=== PATIENT | female | born 1970 | race Caucasian/White ===

== ENCOUNTER 2024-10-05 20:02 | Inpatient (IN) | payer OTHER, SELFPAY ==
[2024-10-05] VITALS (10 sets, daily range): BP systolic 144–165; BP diastolic 72–86; PULSE 75–86; RESP 18; TEMP 36.8; O2SAT 95–99; BMI 31.6
[2024-10-05 20:22] LABS: Appearance Urine Clear (Clear); Bilirubin Urine Negative (Negative); Blood Urine Trace-lysed (Negative); Color Urine Yellow (Yellow); Glucose Urine Negative (Negative); Ketones Urine Negative (Negative); Leukocyte Esterase Urine 1+ (Negative); Nitrite Urine Negative (Negative); Protein Urine Trace (Negative); Specific Gravity Urine 1.025 (1.000-1.030)
--- NOTE | 2024-10-05 20:39 | ED_ITS ---
HPI - General Adult General Date Seen: 10/05/24 Chief complaint: Abdominal Pain Stated complaint: bad abdominal pain Time Seen by Provider: 10/05/24 20:15 History of Present Illness HPI narrative: Very pleasant 54-year-old female presents to the ER today for right upper quadrant abdominal pain. She is visiting [place] but normally lives in [place], [place]. Therefore we do not have any previous medical records for her. She says she is generally healthy. She has no previous abdominal surgeries. No regular prescription medications. She started having episodes of right upper quadrant abdominal pain about 5 days ago on Tuesday. Prior to this week she had never had any similar pain. She notes that she had had episodes that last a few hours, typically triggered by eating but always getting better on their own. She has has been taking some [id number] medications. She came to visit [place] this weekend because of a horse show. She had some lunch with her friends at a [employer] restaurant and did have 1 Olivia with lunch. After l she had recurrence of pain and it has now been persistent for many hours and is not getting better. She rates it at a 9/10. She is nauseous. No vomiting. Bowel movements have been normal. Urination has been normal. No fever. Related Data Home Medications ?Medication ?Instructions ?Recorded ?Confirmed gabapentin 100 mg capsule 100 mg PO QHS 10/05/24 10/05/24 paroxetine HCl 10 mg tablet (Paxil) 5 mg PO HS 10/05/24 10/05/24 Allergies Allergy/AdvReac Type Severity Reaction Status Date / Time No Known Drug Allergies Allergy Verified 10/05/24 20:17 [facility] Medical History Depression ?F32.A - Depression, unspecified (ICD-10) Surgical History H/O tubal ligation ?Z98.51 - Tubal ligation status (ICD-10) Social History Smoking Status: Never smoker Do you use any of these nicotine containing products: None Second hand tobacco smoke exposure: No How often do you have a drink containing alcohol: monthly or less AUDIT-C Alcohol total score: 1 Non-prescribed substance use: denies use Exam Narrative: Exam Narrative: Constitutional: Appears well-developed and well-nourished. Alert. Conversant but uncomfortable. Non toxic. HENT: Head: Atraumatic. Nose: Nose normal. Mouth/Throat: Oral mucosa is clear and moist. no trismus. Pharynx normal. Eyes: Conjunctivae normal. EOM normal. Pupils equal, round, and reactive to light. No scleral icterus. Neck: Normal range of motion. Neck supple. No tracheal deviation present. Cardiovascular: Normal rate, regular rhythm. No gallop. No friction rub. No murmur heard. Pulmonary/Chest: Effort normal. No stridor. No respiratory distress. No wheezes. No rales. No rhonchi . No tenderness. Abdominal: Soft. Bowel sounds normal. No distension. No mass. Marked right upper quadrant tenderness. Positive Drew sign. No left upper quadrant tenderness. No lower abdominal tenderness. No CVA tenderness. No rebound. No guarding. Musculoskeletal: RUE: Normal range of motion. No tenderness. No deformity LUE: Normal range of motion. No tenderness. No deformity RLE: Normal range of motion. No edema. No tenderness. No deformity LLE: Normal range of motion. No edema. No tenderness. No deformit Neurological: Alert and oriented to person, place, and time. Normal strength. CN II-VII intact. No sensory deficit. GCS eye subscore is 4. GCS verbal subscore is 5. GCS motor subscore is 6. Normal coordination Skin: Skin is warm and dry. No rash noted. No pallor. Normal capillary refill. Psychiatric: Normal mood. Normal affect. Const: Vital Signs, click to edit/add: Vital Signs - 24 hr 10/05/24 20:15 10/05/24 20:36 10/05/24 20:50 Temperature 98.2 F 98.2 F Pulse Rate Pulse Rate [Right Pulse Oximeter] 86 Respiratory Rate 18 Blood Pressure Blood Pressure [Ri ght Upper Arm] 165/82 H Pulse Oximetry 99 98 Oxygen Delivery Me thod Room Air 10/05/24 21:03 10/05/24 21:55 10/05/24 21:58 Temperature 98.2 F Pulse Rate 81 78 Pulse Rate [Right Pulse Oximeter] Respiratory Rate 18 18 Blood Pressure 144/80 H 150/72 H Blood Pressure [Ri ght Upper Arm] Pulse Oximetry 95 96 Oxygen Delivery Me thod 10/05/24 22:01 10/05/24 23:02 10/05/24 23:24 Temperature 98.2 F Pulse Rate 77 75 Pulse Rate [Right Pulse Oximeter] 79 Respiratory Rate 18 18 18 Blood Pressure 144/72 H 149/86 H Blood Pressure [Ri ght Upper Arm] 145/84 H Pulse Oximetry 95 97 97 Oxygen Delivery Me thod Room Air 10/05/24 23:25 Temperature 98.2 F Pulse Rate Pulse Rate [Right Pulse Oximeter] 79 Respiratory Rate 18 Blood Pressure Blood Pressure [Ri ght Upper Arm] 145/84 H Pulse Oximetry Oxygen Delivery Me thod Course Vital Signs Vital signs: Initial Vital Signs Temperature 98.2 F 10/05/24 20:15 Temperature Source Temporal Artery Scan 10/05/24 20:15 Pulse Rate 86 10/05/24 20:15 Respiratory Rate 18 10/05/24 20:15 Blood Pressure 165/82 H 10/05/24 20:15 Blood Pressure Mean 109 H 10/05/24 20:15 Blood Pressure Position Sitting 10/05/24 20:15 Pulse Oximetry 99 10/05/24 20:15 Oxygen Delivery Method Room Air 10/05/24 20:15 Vital Signs Temperature 98.2 F 10/05/24 20:15 Pulse Rate 86 10/05/24 20:15 Respiratory Rate 18 10/05/24 20:15 Blood Pressure 165/82 H 10/05/24 20:15 Pulse Oximetry 99 10/05/24 20:15 Oxygen Delivery Method Room Air 10/05/24 20:15 Temperature 98.2 F 10/05/24 23:25 Pulse Rate 79 10/05/24 23:25 Respiratory Rate 18 10/05/24 23:25 Blood Pressure 145/84 H 10/05/24 23:25 Pulse Oximetry 97 10/05/24 23:24 Oxygen Delivery Method Room Air 10/05/24 23:24 Medications Administered Medications: Generic Name Dose Route Start Last Admin Trade Name Freq PRN Reason Stop Dose Admin Hydromorphone HCl 0.5 mg 10/05/24 23:35 10/05/24 23:55 Hydromorphone 0.5 Mg/0.5 Ml Inj IVP 0.5 mg Q2H PRN Administration Sodium Chloride 1,000 mls @ 125 mls/hr 10/05/24 23:35 10/05/24 23:55 0.9 % Sodium Chloride 1000 Ml IV 125 mls/hr .Q8H KIP Administration Discontinued Medications Generic Name Dose Route Start Last Admin Trade Name Freq PRN Reason Stop Dose Admin Hydromorphone HCl 0.5 mg 10/05/24 20:46 10/05/24 20:50 Hydromorphone 0.5 Mg/0.5 Ml Inj IVP 0.5 mg Q1H PRN Administration Pain Sodium Chloride 1,000 mls @ 1,000 mls/hr 10/05/24 21:00 10/05/24 21:58 0.9 % Sodium Chloride 1000 Ml IV 10/05/24 21:59 Infused .Q1H KIP Infusion Ketorolac Tromethamine 15 mg 10/05/24 20:46 10/05/24 20:50 Ketorolac 15 Mg/Ml Inj IVP 10/05/24 20:47 15 mg ONCE ONE Administration Ondansetron HCl 4 mg 10/05/24 20:46 10/05/24 20:50 Ondansetron 2 Mg/Ml Inj IVP 10/05/24 20:47 4 mg ONCE ONE Administration Medical Decision Making MDM Narrative Medical decision making narrative: Presented to the Emergency Department with right upper quadrant abdominal pain that is been present intermittently all week long but has been persistent since lunch today.. The differential diagnosis of abdominal pain includes: Cholecystitis, choledocholithiasis, gallstone pancreatitis, less likely would be Appendicitis, Bowel Obstruction, Ulcer, Ischemia, Diverticulitis, Pancreatitis, UTI, kidney stone, Enteritis/Colitis, amongst many other etiologies. Lab testing reveals a normal white count. Mild anemia with a hemoglobin 11. This was previously known to the patient and that is not an acute finding tonight. LFTs are normal say for AST of 39 ( ALT 18, total bili 0.4, alk-phos 87). Baseline LFTs are unknown. Lipase is normal at 89. Urinalysis is negative. Gallbladder ultrasound confirms gallstones but no evidence for stones in the gallbladder neck or common bile duct. No gallbladder wall thickening or pericholecystic fluid. Presentation is pretty suggestive for biliary colic. Based on worsening symptoms and persisting pain despite IV pain meds I concerned that she may developing cholecystitis but at this point there is no imaging or lab findings to confirm that diagnosis. However, she does have persistent pain. Is improved from 02/27 down to 4-10 after Dilaudid but she still uncomfortable. She does not feel like she would be able to successfully discharged home or control her pain with oral medications. Discussed options with the patient (and her friends). We could consider trying to manage her pain so she can get home to [place] like to see a surgeon where she lives. Also I think it would be reasonable to admit her here to [place] for pain control and operative intervention. She strongly prefers admission. Discussed with our surgeon, Dr. Villaseñor and with our hospitalist, HEBER bella. They agree to admit the patient overnight for pain control with plans for la paroscopic cholecystectomy in the morning. Lab Data Labs: Lab Results 10/05/24 10/05/24 Range/Units 20:17 20:36 WBC 8.50 (4.50-11.00) K/uL RBC 3.95 L (4.00-5.20) m/uL Hgb 11.4 L (12.0-16.0) gm/dL Hct 35.2 (33.0-51.0) % MCV 89 (80-100) fL MCH 29 (26-34) pg MCHC 32 (32-36) gm/dL RDW Coeff of Bogdan 13.4 (11.5-15.5) % Plt Count 288 (140-440) K/uL Neut % (Auto) 56.7 (42.0-72.0) % Lymph % (Auto) 29.5 (20-44) % [place] % (Auto) 10.4 (0.0-11.0) % Eos % (Auto) 2.6 (0.0-7.0) % Baso % (Auto) 0.4 (0.0-3.0) % Neut # (Auto) 4.83 (1.7-7.0) K/uL Lymph # (Auto) 2.51 (0.90-2.90) K/uL [place] # (Auto) 0.90 (0.00-0.90) K/UL Eos # (Auto) 0.22 (0.00-0.50) K/uL Baso # (Auto) 0.03 (0.00-0.30) K/uL Abs Immat Gran (auto) 0.03 (0.00-0.30) K/uL Imm/Tot Granulo (auto) 0.4 % Sodium 137 (135-149) mmol/L Potassium 3.3 L (3.6-5.1) mmol/L Chloride 105 (96-114) mmol/L Carbon Dioxide 25 (20-32) mmol/L Anion Gap 7 (7-15) mEq/L BUN 11 (7-30) mg/dL Creatinine 0.7 (0.5-1.5) mg/dL Estimated Creat Clear 83.63 Estimated GFR 103 ml/min Glucose 123 H (60-115) mg/dL Calcium 8.8 (8.4-10.6) mg/dL Total Bilirubin 0.4 (0.1-1.5) mg/dL AST 39 H (12-35) U/L ALT 18 (4-35) U/L Alkaline Phosphatase 87 (40-150) U/L Total Protein 7.0 (6.0-8.3) g/dL Albumin 4.2 (3.3-5.0) g/dL Lipase 89 (23-300) U/L Urine Color Yellow (Yellow) Urine Appearance Clear (Clear) Urine pH 7.0 (5.0-8.5) Ur Specific [place] 1.025 (1.000-1.030) Urine Protein Trace A (Negative) Urine Glucose (UA) Negative (Negative) Urine Ketones Negative (Negative) Urine Blood Trace-lysed A (Negative) Urine Nitrite Negative (Negative) Urine Bilirubin Negative (Negative) Urine Urobilinogen 1.0 (0.2-1.0) Ur Leukocyte Esterase 1+ A (Negative) Urine RBC 0-2 (0-2) Urine WBC 0-2 (0-5) Ur Squamous Epith Cells Few (None-Few) Amorphous Sediment Few A (None) Urine Bacteria Few A (None) Imaging Data US GB: Attestation: I have reviewed the pertinent imaging results. Radiologist's impression: IMPRESSION: Cholelithiasis without evidence for cholecystitis. Discharge Plan Discharge Clinical Impression: Cholecystitis Patient Disposition: Admitted As Observation
--- NOTE | 2024-10-05 20:46 | CRLHL7_ITS ---
For Patients: As a result of the Cures Act, medical imaging exams and procedure reports are released immediately into your electronic medical record. You may view this report before your referring provider. If you have questions, please contact your health care provider. INDICATION: Right upper quadrant pain. TECHNIQUE: Ultrasound abdomen limited. COMPARISON: None. FINDINGS: Gallbladder: At least 2 or 3 small calcified stones are noted. Normal wall thickness. No pericholecystic fluid. Common bile duct: Non-dilated, measuring 3 mm. IMPRESSION: Cholelithiasis without evidence for cholecystitis. Dictated by Tone Haile MD @ 10/05/2024 10:15:43 PM (Electronically Signed)
[2024-10-05] MEDS: 0.9 % SODIUM CHLORIDE 1000 ml 1,000 ML IV (20:49)
[2024-10-05] MEDS: HYDROmorphone 0.5 mg/0.5 ml inj IVP ×2 (20:50→23:55)
[2024-10-05] MEDS: KETOROLAC 15 MG/ML inj IVP (20:50)
[2024-10-05] MEDS: ONDANSETRON 2 MG/ML inj 4 MG IVP (20:50)
[2024-10-05 20:53] LABS: Amorphous Sediment Urine Few; Bacteria Urine Few; RBC Urine 0-2 (0-2); Squamous Epithelial Cell Urine Few (None-Few); WBC Urine 0-2 (0-5)
[2024-10-05 20:58] LABS: Basophils Absolute Auto 0.03 K/uL (0.00-0.30); Basophils Percent Auto 0.4 % (0.0-3.0); Eosinophils Absolute Auto 0.22 K/uL (0.00-0.50); Eosinophils Percent Auto 2.6 % (0.0-7.0); Hematocrit 35.2 % (33.0-51.0); Hemoglobin* 11.4 gm/dL (12.0-16.0); Immature Granulocytes Abs Auto 0.03 K/uL (0.00-0.30); Immature Granulocytes Pct Auto 0.4 %; Lymphocytes Absolute Auto 2.51 K/uL (0.90-2.90); Lymphocytes Percent Auto 29.5 % (20-44); Mean Corpuscular HGB Conc 32 gm/dL (32-36); Mean Corpuscular Hemoglobin 29 pg (26-34); Mean Corpuscular Volume 89 fL (80-100); Monocytes Percent Auto 10.4 % (0.0-11.0); Neutrophils Absolute Auto 4.83 K/uL (1.7-7.0); Neutrophils Percent Auto 56.7 % (42.0-72.0); Platelet Count* 288 K/uL (140-440); RDW Coefficient of Variation % 13.4 % (11.5-15.5); Red Blood Count 3.95 m/uL (4.00-5.20)
[2024-10-05 21:10] LABS: Slide Review Reflex No
[2024-10-05 21:21] LABS: Albumin* 4.2 g/dL (3.3-5.0); Chloride* 105 mmol/L (96-114); Potassium* 3.3 mmol/L (3.6-5.1); Sodium* 137 mmol/L (135-149)
[2024-10-05 21:24] LABS: Alanine Aminotransferase* 18 U/L (4-35); Alkaline Phosphatase* 87 U/L (40-150); Anion Gap 7 mEq/L (7-15); Aspartate Amino Transferase* 39 U/L (12-35); Bilirubin Total* 0.4 mg/dL (0.1-1.5); Blood Urea Nitrogen* 11 mg/dL (7-30); Carbon Dioxide* 25 mmol/L (20-32); Creatinine* 0.7 mg/dL (0.5-1.5); Est. Creatinine Clearance* 83.63; Estimated Glomerular Filt Rate 103 ml/min; Lipase* 89 U/L (23-300)
[2024-10-05 21:25] LABS: Calcium* 8.8 mg/dL (8.4-10.6); Glucose* 123 mg/dL (60-115)
--- NOTE | 2024-10-05 23:21 | PM.IMHP1 ---
Assessment and Plan Assessment and plan (1) Cholelithiasis: Problem comment: Ultrasound shows 2-3 small calcified stones, normal wall thickness, no pericholecystic fluid. Common bile duct is nondilated, measuring 3 mm Afebrile, vitally stable No leukocytosis, AST 39 otherwise LFTs unremarkable, lipase 89. UA rather unremarkable Admit for planned surgical procedure tomorrow IVF, NPO Pain and nausea management as needed Discharge plan per General Surgery Status: Acute Total Time Spent Total Time Spent: Today I spent 75 minutes seeing the patient, reviewing Expanse and EPIC notes/diagnostics, discussing the care plan with our care time that includes social work, PT/OT, pharmacy, RT, senior care and documenting my impressions and plan in the medical record. Hospitalist- H&P: HPI History of Present Illness Date Seen: 10/05/24 Chief complaint: bad abdominal pain Narrative: Mercedes Smith is a 54 year old female past medical history significant for depression is admitted to the medical floor from the ED for acute cholelithiasis with plan for cholecystectomy in the morning. Patient resides in [facility] and was in [place] for a horse show. She had Indian food for lunch and has had persistent right upper quadrant abdominal pain since. She tells me the pain actually began 1 week ago, last Tuesday. Has been intermittent. This has been the worst, unrelenting. Feels bloated. Radiates into her lower chest. Has been nauseous without vomiting. Last normal bowel movement was earlier today. No change in urination. Denies headaches but has felt slightly lightheaded today. Has felt chilled but has had no fever. Denies chest pain or shortness of breath. Admits to similar right upper quadrant pain approximately 2 months ago. Was not this intense and did not last long, eventually resolving on its own. Nonsmoker. Social alcohol use, not daily. Currently on gabapentin and Paxil. NKDA. Previous surgeries include tubal ligation. Denies history of anesthesia complications. No personal or family history of bleeding disorders. PCP is in [place]. ED provider discussed with General surgery, Dr. Sánchez, plan for cholecystectomy tomorrow. Review of Systems Narrative: REVIEW OF SYSTEMS: Complete review of systems performed and negative unless otherwise stated in HPI or below. PFSH PFS Medical History Depression ?F32.A - Depression, unspecified (ICD-10) Surgical History H/O tubal ligation ?Z98.51 - Tubal ligation status (ICD-10) Social History Smoking Status: Never smoker Do you use any of these nicotine containing products: None Second hand tobacco smoke exposure: No How often do you have a drink containing alcohol: monthly or less AUDIT-C Alcohol total score: 1 Non-prescribed substance use: denies use Meds Home Medications and Allergies Home Medications ?Medication ?Instructions ?Recorded ?Confirmed ?Type gabapentin 100 mg capsule 100 mg PO QHS 10/05/24 10/05/24 History paroxetine HCl 10 mg tablet (Paxil) 5 mg PO HS 10/05/24 10/05/24 History Allergies Allergy/AdvReac Type Severity Reaction Status Date / Time No Known Drug Allergies Allergy Verified 10/05/24 20:17 Exam Narrative: Exam Narrative: PHYSICAL EXAM General: Very pleasant, conversant, NAD HEENT: Normocephalic, atraumatic, sclera white, EOMI, oral mucosa moist Cardiovascular: RRR, S1S2. No pitting edema Pulmonary: CTA bilaterally without rhonchi, rales, expiratory wheezes. No dyspnea on room air Abdominal: Soft, nondistended, RUQ pain on palpation without guarding Neurological: Alert, answering questions appropriately, cranial nerves intact, no focal findings Extremities: No gross joint deformity or swelling. AROMI. Neurovascularly intact Skin: Warm, dry. Const: Vital Signs, click to edit/add: Vital Signs - 24 hr 10/05/24 20:15 10/05/24 20:36 10/05/24 20:50 Temperature 98.2 F 98.2 F Pulse Rate Pulse Rate [Right Pulse Oximeter] 86 Respiratory Rate 18 Blood Pressure Blood Pressure [Ri ght Upper Arm] 165/82 H Pulse Oximetry 99 98 Oxygen Delivery Me thod Room Air 10/05/24 21:03 10/05/24 21:55 10/05/24 21:58 Temperature 98.2 F Pulse Rate 81 78 Pulse Rate [Right Pulse Oximeter] Respiratory Rate 18 18 Blood Pressure 144/80 H 150/72 H Blood Pressure [Ri ght Upper Arm] Pulse Oximetry 95 96 Oxygen Delivery [facility] 10/05/24 22:01 Temperature Pulse Rate 77 Pulse Rate [Right Pulse Oximeter] Respiratory Rate 18 Blood Pressure 144/72 H Blood Pressure [Ri ght Upper Arm] Pulse Oximetry 95 Oxygen Delivery [facility] Hospitalist - H&P: Result Labs Labs: Short CBC 10/05/24 Range/Units 20:36 WBC 8.50 (4.50-11.00) K/uL Hgb 11.4 L (12.0-16.0) gm/dL Hct 35.2 (33.0-51.0) % Plt Count 288 (140-440) K/uL BMP 10/05/24 20:36 Sodium 137 Potassium 3.3 L Chloride 105 Carbon Dioxide 25 BUN 11 Creatinine 0.7 Glucose 123 H Calcium 8.8 Liver Function 10/05/24 Range/Units 20:36 Total Bilirubin 0.4 (0.1-1.5) mg/dL AST 39 H (12-35) U/L ALT 18 (4-35) U/L Alkaline Phosphatase 87 (40-150) U/L Albumin 4.2 (3.3-5.0) g/dL Urine 10/05/24 Range/Units 20:17 Urine Color Yellow (Yellow) Urine Appearance Clear (Clear) Urine pH 7.0 (5.0-8.5) Ur Specific [place] 1.025 (1.000-1.030) Urine Protein Trace A (Negative) Urine Glucose (UA) Negative (Negative) ECG ECG interpretation date: 10/05/24 Interpretation: NSR Imaging Gallbladder ultrasound: Attestation: I have reviewed the pertinent imaging results. Radiologist's impression: Gallbladder: At least 2 or 3 small calcified stones are noted. Normal wall thickness. No pericholecystic fluid. Common bile duct: Non-dilated, measuring 3 mm. IMPRESSION: Cholelithiasis without evidence for cholecystitis.
[2024-10-05] MEDS: 0.9 % SODIUM CHLORIDE 1000 ml 1,000 ML 125 ML IV (23:55)
[2024-10-06] VITALS (17 sets, daily range): BP systolic 111–154; BP diastolic 68–90; PULSE 68–89; RESP 12–18; TEMP 36.4–37.3; O2SAT 92–99; BMI 33.4
[2024-10-06 00:14] LABS: Ur HCG Qualitative* Negative (Negative)
[2024-10-06] MEDS: HYDROmorphone 0.5 mg/0.5 ml inj IVP ×3 (02:15→07:34)
--- NOTE | 2024-10-06 06:13 | PC.NURSE ---
Pt alert and oriented.? Pt up independently in room. Pt slept through out most of shift. Pt had complaints of pain rated at 6-7; see EMAR for intervention. Pt to have surgery 10/06/24 at 9am? ?
[2024-10-06 06:25] LABS: Hematocrit 33.5 % (33.0-51.0); Hemoglobin* 10.6 gm/dL (12.0-16.0); Mean Corpuscular HGB Conc 32 gm/dL (32-36); Mean Corpuscular Hemoglobin 29 pg (26-34); Mean Corpuscular Volume 91 fL (80-100); Platelet Count* 230 K/uL (140-440); Red Blood Count 3.67 m/uL (4.00-5.20); Slide Review Reflex No; White Blood Count* 6.31 K/uL (4.50-11.00)
[2024-10-06 06:43] LABS: Albumin* 3.5 g/dL (3.3-5.0); Chloride* 109 mmol/L (96-114); Potassium* 3.6 mmol/L (3.6-5.1); Sodium* 140 mmol/L (135-149)
[2024-10-06 06:46] LABS: Alanine Aminotransferase* 16 U/L (4-35); Alkaline Phosphatase* 59 U/L (40-150); Anion Gap 4 mEq/L (7-15); Aspartate Amino Transferase* 28 U/L (12-35); Bilirubin Total* 0.6 mg/dL (0.1-1.5); Blood Urea Nitrogen* 8 mg/dL (7-30); Calcium* 8.3 mg/dL (8.4-10.6); Carbon Dioxide* 27 mmol/L (20-32); Creatinine* 0.7 mg/dL (0.5-1.5); Est. Creatinine Clearance* 83.63; Estimated Glomerular Filt Rate 103 ml/min; Glucose* 93 mg/dL (60-115); Lipase* 61 U/L (23-300)
[2024-10-06] MEDS: 0.9 % SODIUM CHLORIDE 1000 ml 1,000 ML 125 ML IV (07:22)
--- NOTE | 2024-10-06 09:15 | P.GSCN_ITS ---
History of Present Illness Consult details Date Seen: 10/06/24 Consult date: 10/06/24 Narrative: Patient is a healthy 54-year-old female who presents with 1 week right upper quadrant abdominal pain. The pain has been ?relatively constant? but worsened with food. She was initially controlling the pain with ibuprofen. Last night the pain became severe causing her to come into the emergency department. She thinks she might have had similar episodes in the past, although those would go away completely after a period of time. She does report some associated nausea, no emesis. Denies any diarrhea. No fevers. Abdominal surgery includes tubal ligation. Review of Systems Status of ROS: Reports: 10 or more systems reviewed and unremarkable except as noted in History and below [facility] Medical History Depression ?F32.A - Depression, unspecified (ICD-10) Surgical History H/O tubal ligation ?Z98.51 - Tubal ligation status (ICD-10) Social History What is your current living situation?: I presently have a place to live Problems where you live details: NA In the past 12 months, utilities in danger of being shut off: no In past 12 months, lack of transportation kept you from medical appts, meetings, work, or getting things needed for daily living: no In the past 12 mos, have been you worried that your food would run out before you had money to buy more?: never true In the past 12 mos, the food you bought just didn't last and you didn't have money to buy more?: never true Highest level of school completed/degree received: Associate degree: occupational, technical, vocational program Smoking Status: Never smoker Do you use any of these nicotine containing products: None Second hand tobacco smoke exposure: No How often do you have a drink containing alcohol: monthly or less How many standard drinks containing alcohol do you have on a typical day: 1 or 2 AUDIT-C Alcohol total score: 1 Non-prescribed substance use: denies use Caffeine: Yes How often does anyone, including family, friends and others, physically hurt you : never How often does anyone, including family, friends and others, insult or talk down to you: never How often does anyone, including family, friends and others, threaten you with harm: never service: No Meds Home Medications and Allergies Home Medications ?Medication ?Instructions ?Recorded ?Confirmed ?Type gabapentin 300 mg capsule 300 mg PO HS 10/06/24 10/06/24 History paroxetine HCl 20 mg tablet 20 mg PO DAILY 10/06/24 10/06/24 History Allergies Allergy/AdvReac Type Severity Reaction Status Date / Time No Known Drug Allergies Allergy Verified 10/05/24 20:17 Exam Narrative: Exam Narrative: General: Alert and oriented no acute distress Respiratory: Equal breath rise bilaterally, maintained on room air CV: Well perfused Abdomen: Soft, tender to palpation right upper quadrant with some guarding, no rebound. Const: Vital Signs, click to edit/add: Vital Signs - 24 hr 10/05/24 20:15 10/05/24 20:36 10/05/24 20:50 Temperature 98.2 F 98.2 F Pulse Rate Pulse Rate [Pulse Oximeter] Pulse Rate [Right Pulse Oximeter] 86 Respiratory Rate 18 Blood Pressure Blood Pressure [Le ft Arm] Blood Pressure [Ri ght Upper Arm] 165/82 H Pulse Oximetry 99 98 Oxygen Delivery Me thod Room Air 10/05/24 21:03 10/05/24 21:55 10/05/24 21:58 Temperature 98.2 F Pulse Rate 81 78 Pulse Rate [Pulse Oximeter] Pulse Rate [Right Pulse Oximeter] Respiratory Rate 18 18 Blood Pressure 144/80 H 150/72 H Blood Pressure [Le ft Arm] Blood Pressure [Ri ght Upper Arm] Pulse Oximetry 95 96 Oxygen Delivery Me thod 10/05/24 22:01 10/05/24 23:02 10/05/24 23:24 Temperature 98.2 F Pulse Rate 77 75 Pulse Rate [Pulse Oximeter] Pulse Rate [Right Pulse Oximeter] 79 Respiratory Rate 18 18 18 Blood Pressure 144/72 H 149/86 H Blood Pressure [Le ft Arm] Blood Pressure [Ri ght Upper Arm] 145/84 H Pulse Oximetry 95 97 97 Oxygen Delivery Me thod Room Air 10/05/24 23:25 10/06/24 00:10 10/06/24 02:19 Temperature 98.2 F 98.3 F 97.5 F L Pulse Rate Pulse Rate [Pulse Oximeter] 77 68 Pulse Rate [Right Pulse Oximeter] 79 Respiratory Rate 18 18 18 Blood Pressure Blood Pressure [Le ft Arm] 154/87 H 118/81 Blood Pressure [Ri ght Upper Arm] 145/84 H Pulse Oximetry 97 93 Oxygen Delivery Me thod Room Air Room Air 10/06/24 07:00 Temperature 98.5 F Pulse Rate Pulse Rate [Pulse Oximeter] 69 Pulse Rate [Right Pulse Oximeter] Respiratory Rate 18 Blood Pressure Blood Pressure [Le ft Arm] 121/68 Blood Pressure [Ri ght Upper Arm] Pulse Oximetry 98 Oxygen Delivery Me thod Room Air Results Labs Labs: Abnormal lab results 10/05/24 10/05/24 10/06/24 Range/Units 20:17 20:36 04:00 RBC 3.95 L 3.67 L (4.00-5.20) m/uL Hgb 11.4 L 10.6 L (12.0-16.0) gm/dL Potassium 3.3 L (3.6-5.1) mmol/L Anion Gap (7-15) mEq/L Glucose 123 H (60-115) mg/dL Calcium (8.4-10.6) mg/dL AST 39 H (12-35) U/L Urine Protein Trace A (Negative) Urine Blood Trace-lysed A (Negative) Ur Leukocyte Esterase 1+ A (Negative) Amorphous Sediment Few A (None) Urine Bacteria Few A (None) 10/06/24 Range/Units 06:11 RBC (4.00-5.20) m/uL Hgb (12.0-16.0) gm/dL Potassium (3.6-5.1) mmol/L Anion Gap 4 L (7-15) mEq/L Glucose (60-115) mg/dL Calcium 8.3 L (8.4-10.6) mg/dL AST (12-35) U/L Urine Protein (Negative) Urine Blood (Negative) Ur Leukocyte Esterase (Negative) Amorphous Sediment (None) Urine Bacteria (None) Diabetes panel 10/05/24 10/06/24 Range/Units 20:36 06:11 Sodium 137 140 (135-149) mmol/L Potassium 3.3 L 3.6 (3.6-5.1) mmol/L Chloride 105 109 (96-114) mmol/L Carbon Dioxide 25 27 (20-32) mmol/L BUN 11 8 (7-30) mg/dL Creatinine 0.7 0.7 (0.5-1.5) mg/dL Glucose 123 H 93 (60-115) mg/dL Calcium 8.8 8.3 L (8.4-10.6) mg/dL AST 39 H 28 (12-35) U/L ALT 18 16 (4-35) U/L Alkaline Phosphatase 87 59 (40-150) U/L Total Protein 7.0 6.0 (6.0-8.3) g/dL Albumin 4.2 3.5 (3.3-5.0) g/dL Calcium panel 10/05/24 10/06/24 Range/Units 20:36 06:11 Calcium 8.8 8.3 L (8.4-10.6) mg/dL Albumin 4.2 3.5 (3.3-5.0) g/dL Pituitary panel 10/05/24 10/06/24 Range/Units 20:36 06:11 Sodium 137 140 (135-149) mmol/L Potassium 3.3 L 3.6 (3.6-5.1) mmol/L Chloride 105 109 (96-114) mmol/L Carbon Dioxide 25 27 (20-32) mmol/L BUN 11 8 (7-30) mg/dL Creatinine 0.7 0.7 (0.5-1.5) mg/dL Glucose 123 H 93 (60-115) mg/dL Calcium 8.8 8.3 L (8.4-10.6) mg/dL Adrenal panel 10/05/24 10/06/24 Range/Units 20:36 06:11 Sodium 137 140 (135-149) mmol/L Potassium 3.3 L 3.6 (3.6-5.1) mmol/L Chloride 105 109 (96-114) mmol/L Carbon Dioxide 25 27 (20-32) mmol/L BUN 11 8 (7-30) mg/dL Creatinine 0.7 0.7 (0.5-1.5) mg/dL Glucose 123 H 93 (60-115) mg/dL Calcium 8.8 8.3 L (8.4-10.6) mg/dL Total Bilirubin 0.4 0.6 (0.1-1.5) mg/dL AST 39 H 28 (12-35) U/L ALT 18 16 (4-35) U/L Alkaline Phosphatase 87 59 (40-150) U/L Total Protein 7.0 6.0 (6.0-8.3) g/dL Albumin 4.2 3.5 (3.3-5.0) g/dL All other labs normal. Imaging Abdominal ultrasound report/results: report reviewed and image reviewed Progress Note:A&P Assessment and plan (1) Cholecystitis: Status: Acute Assessment and Plan: Patient presents with clinical workup and symptoms consistent with acute cholecystitis. LFTs within normal limits, no concern for choledocholithiasis at this time. I had a detailed conversation with the patient regarding the diagnosis of acute cholecystitis. We discussed the treatment options including observation with diet modification and laparoscopic cholecystectomy. We discussed the risks of surgery (including but not limited to) the risks of bleeding, infection, injury to other structures in the abdomen including bile duct injury, bile leak and conversion to an open operation. We discussed the possibility that the patient's pain not improve with surgery. We discussed the possibility of permanent post-operative diarrhea that may require medical management. Additionally, the conceivably of complications requiring additional surgery or further hospitalization were also discussed including the risks of NC, respiratory failure, stroke and blood clots. The patient voiced an understanding of our conversation, had the opportunity to ask questions, agreed to accept the risks of surgery and asked that we proceed with surgery.
[2024-10-06] MEDS: PIPERACILLIN/TAZOBACTAM 3.375 GM in 0.9 % SODIUM CHLORIDE Mini-bag 100 ML IVPB (09:25)
[2024-10-06] MEDS: BUPIVACAINE 0.5% 30 ML INJECTION (09:35)
[2024-10-06] MEDS: LACTATED RINGERS 500 ML 500 ML 125 ML IV (09:50)
[2024-10-06] MEDS: KETOROLAC 15 MG/ML inj IVP (10:34)
--- NOTE | 2024-10-06 10:45 | PM.GSPRC ---
Operative Note Date of procedure: 10/06/24 Pre-op diagnosis: Acute cholecystitis Post-op diagnosis: Same, hydrops of the gallbladder Type of Procedure: Laparoscopic cholecystectomy Indications: Patient is a 54-year-old female who presented to the emergency department with clinical history and workup consistent with acute cholecystitis. Risks and benefits of operative intervention were discussed at length with the patient. Risks included but was not limited to: Bleeding, infection, risk of damage to surrounding structures, possible need for additional procedures, possible need to convert to an open operation and postoperative complications such as pneumonia, pulmonary emboli or NV. All questions and concerns were addressed with the patient agreeing to proceed. Procedure Description: After discussing the risks and benefits of the procedure, the patient signed informed consent.? The operative site was marked and the patient was brought to the operating room and placed on the operating table in supine position.? Care was taken to pad the patient's pressure points.?? The patient was then intubated by anesthesia.?? The operative site was then prepped and draped in the usual sterile fashion.? A time-out was then performed. Entrance to the abdomen was gained via a 5 mm Visiport in the left upper quadrant. The abdomen was insufflated and briefly surveyed for signs of injury. There was none. 11 mm umbilical port was placed as well as 2 working ports along the right costal margin. Patient was then placed in reverse Trendelenburg position with the right side up. The gallbladder fundus was distended and decompressed with a laparoscopic needle. Approximately 80 mL clear, murky fluid was removed. A sample was sent for culture. The fundus was then grasped and retracted cephalad. The tissue was very edematous and friable. The infundibulum was grasped. A combination of hook cautery and blunt dissection was used to carefully dissect the tissues. A large node of Calot was seen overlying the artery. A small artery perfusing the node was ligated with a clip placed proximally. Upon further dissection the cystic duct and artery were visualized entering the gallbladder without any intervening structures. The gallbladder was dissected off the cystic plate to achieve the critical view. Once this was achieved the cystic duct and artery were each clipped with 2 clips proximally and 1 clip distally and transected with the scissors. The gallbladder was then taken off of the liver bed. During this portion of the procedure I noticed that the cystic artery branched posterior to the gallbladder and dived into the liver high up in the gallbladder fossa. Anatomical placement was not consistent with a replaced right hepatic. Two clips were placed proximal and 1 distal before the branching artery was ligated so that the gallbladder could be removed from the liver completely. Once completely removed it was placed into an Endo-Catch bag and removed from the abdomen. The gallbladder bed was surveyed for hemostasis. A small amount of bile which had spilled was suctioned from the abdomen. The ports were then removed under direct vision. The umbilical port fascia was closed with 0 Vicryl. The skin was closed with absorbable subcuticular suture. Instrument sponge and needle counts were correct at the end of the case. The patient was then woken and transferred to the PACU in stable condition. Findings: Acute cholecystitis,, hydrops of the gallbladder. Anesthesia: GETA Surgeon: Babs Sánchez MD Estimated blood loss (mL): 20 Specimen: Gallbladder Condition: stable Disposition: PACU
--- NOTE | 2024-10-06 11:18 | P.ANES_ITS ---
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
--- NOTE | 2024-10-06 11:18 | W.ANESCHARGE ---
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
--- NOTE | 2024-10-06 13:39 | PM.IMPN1 ---
Assessment and Plan Assessment and plan (1) Cholelithiasis: Problem comment: Ultrasound shows 2-3 small calcified stones, normal wall thickness, no pericholecystic fluid. Common bile duct is nondilated, measuring 3 mm Afebrile, vitally stable No leukocytosis, AST 39 otherwise LFTs unremarkable, lipase 89. UA rather unremarkable Admit for planned surgical procedure tomorrow IVF, NPO Pain and nausea management as needed Discharge plan per General Surgery Status: Acute (2) Cholecystitis: Status: Acute (3) Recurrent biliary colic: Status: Acute Plan 1. Reviewed impression, plan, recommendations with patient. 2. Discussed with her surgeon, Dr. Sánchez, who will assume care for the patient at this time. 3. Reconsult hospital medicine service if needed. 4. Answered patient's questions to her satisfaction. 5. Patient agreeable with above stated plans and recommendations. Total Time Spent Total Time Spent: 40 minutes Subjective Date Seen: 10/06/24 Interval history: Admission history of present illness: ?54 year old female past medical history significant for depression is admitted to the medical floor from the ED for acute cholelithiasis with plan for cholecystectomy in the morning. ?Patient resides in [facility] and was in [place] for a horse show. She had [place] food for lunch and has had persistent right upper quadrant abdominal pain since. She tells me the pain actually began 1 week ago, last Tuesday. Has been intermittent. This has been the worst, unrelenting. Feels bloated. Radiates into her lower chest. Has been nauseous without vomiting. Last normal bowel movement was earlier today. No change in urination. Denies headaches but has felt slightly lightheaded today. Has felt chilled but has had no fever. Denies chest pain or shortness of breath. ?Admits to similar right upper quadrant pain approximately 2 months ago. Was not this intense and did not last long, eventually resolving on its own. ?Nonsmoker. Social alcohol use, not daily. Currently on gabapentin and Paxil. NKDA. ?Previous surgeries include tubal ligation. Denies history of anesthesia complications. No personal or family history of bleeding disorders. PCP is in [place]. ?ED provider discussed with General surgery, Dr. Sánchez, plan for cholecystectomy tomorrow.? Hospital day 2, 10/06/2024: Persistent right upper quadrant abdominal discomfort, not as intense as yesterday, improved with intermittent analgesic use. Less nausea than yesterday. Still no vomiting. Exam Narrative: Exam Narrative: Examined patient in her hospital room. Appears comfortable no acute distress. Alert and oriented x4. Vision and hearing are adequate. Lungs are clear to auscultation without wheezing, rhonchi, rales. Chest wall excursions are full. No CVA tenderness. Heart tones with regular rhythm, normal S1-S2. No murmur, gallop, rub. PMI not laterally displaced. Abdomen with active bowel sounds. Subjective discomfort to palpation particularly the right upper quadrant. No rebound or guarding. Independent in transfer, station, gait. No focal motor neurologic deficits. Skin is warm, dry, intact. Capillary refill less than 3 seconds in upper and lower extremities. Const: Vital Signs, click to edit/add: Vital Signs - 24 hr 10/05/24 20:15 10/05/24 20:36 10/05/24 20:50 Temperature 98.2 F 98.2 F Pulse Rate Pulse Rate [Pulse Oximeter] Pulse Rate [Right Pulse Oximeter] 86 Respiratory Rate 18 Blood Pressure Blood Pressure [Le ft Arm] Blood Pressure [Ri ght Upper Arm] 165/82 H Pulse Oximetry 99 98 Oxygen Delivery Me thod Room Air Oxygen Flow Rate 10/05/24 21:03 10/05/24 21:55 10/05/24 21:58 Temperature 98.2 F Pulse Rate 81 78 Pulse Rate [Pulse Oximeter] Pulse Rate [Right Pulse Oximeter] Respiratory Rate 18 18 Blood Pressure 144/80 H 150/72 H Blood Pressure [Le ft Arm] Blood Pressure [Ri ght Upper Arm] Pulse Oximetry 95 96 Oxygen Delivery Me thod Oxygen Flow Rate 10/05/24 22:01 10/05/24 23:02 10/05/24 23:24 Temperature 98.2 F Pulse Rate 77 75 Pulse Rate [Pulse Oximeter] Pulse Rate [Right Pulse Oximeter] 79 Respiratory Rate 18 18 18 Blood Pressure 144/72 H 149/86 H Blood Pressure [Le ft Arm] Blood Pressure [Ri ght Upper Arm] 145/84 H Pulse Oximetry 95 97 97 Oxygen Delivery Me thod Room Air Oxygen Flow Rate 10/05/24 23:25 10/06/24 00:10 10/06/24 02:19 Temperature 98.2 F 98.3 F 97.5 F L Pulse Rate Pulse Rate [Pulse Oximeter] 77 68 Pulse Rate [Right Pulse Oximeter] 79 Respiratory Rate 18 18 18 Blood Pressure Blood Pressure [Le ft Arm] 154/87 H 118/81 Blood Pressure [Ri ght Upper Arm] 145/84 H Pulse Oximetry 97 93 Oxygen Delivery Me thod Room Air Room Air Oxygen Flow Rate 10/06/24 07:00 10/06/24 11:10 10/06/24 11:15 Temperature 98.5 F 98.1 F Pulse Rate 84 89 Pulse Rate [Pulse Oximeter] 69 Pulse Rate [Right Pulse Oximeter] Respiratory Rate 18 12 12 Blood Pressure 123/79 126/83 Blood Pressure [Le ft Arm] 121/68 Blood Pressure [Ri ght Upper Arm] Pulse Oximetry 98 95 92 Oxygen Delivery Me thod Room Air Nasal Cannula Nasal Cannula Oxygen Flow Rate 3 3 10/06/24 11:20 10/06/24 11:25 10/06/24 11:30 Temperature Pulse Rate 77 83 75 Pulse Rate [Pulse Oximeter] Pulse Rate [Right Pulse Oximeter] Respiratory Rate 12 12 12 Blood Pressure 127/75 111/90 H 129/74 Blood Pressure [Le ft Arm] Blood Pressure [Ri ght Upper Arm] Pulse Oximetry 96 96 98 Oxygen Delivery Me thod Nasal Cannula Nasal Cannula Nasal Cannula Oxygen Flow Rate 3 3 3 10/06/24 11:35 10/06/24 11:40 Temperature 99.1 F Pulse Rate 82 85 Pulse Rate [Pulse Oximeter] Pulse Rate [Right Pulse Oximeter] Respiratory Rate 12 12 Blood Pressure 123/74 124/68 Blood Pressure [Le ft Arm] Blood Pressure [Ri ght Upper Arm] Pulse Oximetry 98 97 Oxygen Delivery Me thod Nasal Cannula Nasal Cannula Oxygen Flow Rate 3 3 Labs Labs: Laboratory Results - last 24 hr 10/05/24 10/05/24 10/06/24 20:17 20:36 04:00 WBC 8.50 6.31 RBC 3.95 L 3.67 L Hgb 11.4 L 10.6 L Hct 35.2 33.5 MCV 89 91 MCH 29 29 MCHC 32 32 RDW Coeff of Bogdan 13.4 Plt Count 288 230 Neut % (Auto) 56.7 Lymph % (Auto) 29.5 Cloud % (Auto) 10.4 Eos % (Auto) 2.6 Baso % (Auto) 0.4 Neut # (Auto) 4.83 Lymph # (Auto) 2.51 Cloud # (Auto) 0.90 Eos # (Auto) 0.22 Baso # (Auto) 0.03 Abs Immat Gran (auto) 0.03 Imm/Tot Granulo (auto) 0.4 Sodium 137 Potassium 3.3 L Chloride 105 Carbon Dioxide 25 Anion Gap 7 BUN 11 Creatinine 0.7 Estimated Creat Clear 83.63 Estimated GFR 103 Glucose 123 H Calcium 8.8 Total Bilirubin 0.4 AST 39 H ALT 18 Alkaline Phosphatase 87 Total Protein 7.0 Albumin 4.2 Lipase 89 Urine Color Yellow Urine Appearance Clear Urine pH 7.0 Ur Specific Sidman 1.025 Urine Protein Trace A Urine Glucose (UA) Negative Urine Ketones Negative Urine Blood Trace-lysed A Urine Nitrite Negative Urine Bilirubin Negative Urine Urobilinogen 1.0 Ur Leukocyte Esterase 1+ A Urine RBC 0-2 Urine WBC 0-2 Ur Squamous Epith Cells Few Amorphous Sediment Few A Urine Bacteria Few A Urine HCG, Qual Negative 10/06/24 06:11 WBC RBC Hgb Hct MCV MCH MCHC RDW Coeff of Bogdan Plt Count Neut % (Auto) Lymph % (Auto) Cloud % (Auto) Eos % (Auto) Baso % (Auto) Neut # (Auto) Lymph # (Auto) Cloud # (Auto) Eos # (Auto) Baso # (Auto) Abs Immat Gran (auto) Imm/Tot Granulo (auto) Sodium 140 Potassium 3.6 Chloride 109 Carbon Dioxide 27 Anion Gap 4 L BUN 8 Creatinine 0.7 Estimated Creat Clear 83.63 Estimated GFR 103 Glucose 93 Calcium 8.3 L Total Bilirubin 0.6 AST 28 ALT 16 Alkaline Phosphatase 59 Total Protein 6.0 Albumin 3.5 Lipase 61 Urine Color Urine Appearance Urine pH Ur Specific Sidman Urine Protein Urine Glucose (UA) Urine Ketones Urine Blood Urine Nitrite Urine Bilirubin Urine Urobilinogen Ur Leukocyte Esterase Urine RBC Urine WBC Ur Squamous Epith Cells Amorphous Sediment Urine Bacteria Urine HCG, Qual Imaging US - abdomen: Radiologist's impression: FINDINGS: Gallbladder: At least 2 or 3 small calcified stones are noted. Normal wall thickness. No pericholecystic fluid. Common bile duct: Non-dilated, measuring 3 mm. IMPRESSION: Cholelithiasis without evidence for cholecystitis. ECG Attestation: I personally reviewed and interpreted this ECG as follows: Prior ECG tracings: not available for review Interpretation: Normal sinus rhythm. Poor R-wave progression anteriorly, possible normal variant.
[2024-10-06] MEDS: OXYCODONE 5 MG TABLET PO (14:36)
--- NOTE | 2024-10-06 16:42 | PC.NURSE ---
Addendum entered by Zuleika Lawrence RN 10/06/24 16:49: Correction - pt d/c'd to home with significant other via wheelchair at approximately 1613. Original Note: Discharge - Pt alert, oriented, cooperative. Up independent in room, tolerating RA and regular diet/fluids. Pt reported pain in abdomen as 0-3/10, given medication per MAR with pt reporting improvement. Pt requested d/c prior to 6 hour post-op protocol. IV removed with catheter intact. D/C education given with pt verbalizing understanding. Pt d/c'd to home with significant other via wheelchair at approximately 1644.
== END 2024-10-06 16:13 | disposition home or self-care (01) | DRG 418 ==
LOC: ED 22:56 → SS 23:18 → MEDSURG 23:19 → SS 10-06 08:12 → MEDSURG 10-06 08:12
PROVIDERS: Admitting Provider Physician Assistant; Emergency Provider Emergency Medicine; Visit Provider Surgery
PROC: 0FT44ZZ Resection of Gallbladder, Percutaneous Endoscopic Approach (ICD-10-PCS; CPT 47562; principal; 2024-10-06 09:00)
DX: K80.12 Calculus of gallbladder with acute and chronic cholecystitis without obstruction (principal); K82.1 Hydrops of gallbladder; F32.A Depression, unspecified
CPT/HCPCS: 00790; 36415; 76705; 80053; 81001; 81025; 83690; 85025; 85027; 87070; 87075; 87086; 87205; 88304; 93005; 94761; 99140; 99284; 99285; A9270; J0330; J0665; J1100; J1171; J1630; J1885; J2250; J2405; J2543; J2704; J3010; J3490; J7030; J7120